=== PATIENT | female | born 1980 | race American Indian/Alaskan Native ===

== ENCOUNTER 2016-10-30 19:05 | Emergency (ER) | payer OTHER ==
[2016-10-30] MEDS ORDERED: VALIUM PO ONE (22:12)
[2016-10-30] MEDS ORDERED: NORCO 5/325 PO ONE (22:12)
[2016-10-30] MEDS ORDERED: BOOSTRIX IM ONE (22:19)
[2016-10-30] MEDS ORDERED: NACL 0.9% IR ONE (22:19)
--- NOTE | 2016-10-30 22:21 | Emergency Department Report ---
- General Chief Complaint: Laceration/Recheck/Suture Stated Complaint: GLASS IN FOOT Time Seen by Provider: 10/30/16 22:18 Source: patient, family Mode of arrival: Ambulatory Limitations: No Limitations - History of Present Illness Initial Comments: Patient here reports that she cut herself with a piece of glass accidentally to her left foot. Pain is 7 out of 7. Denies any foreign body sensation. She says she was given a glass of wine and she got out of bed and the glass on the floor and she stepped on the glass accidentally. Denies any numbness or tingling to toes. No [id number] medication taken prior to hospitalization. Tetanus vaccine is up-to-date -: This evening Extremity Location: Left: Foot (foot laceration due to injury) Place: home Patient Tetanus UTD: No Context: accidental Associated Symptoms: pain. denies: loss of feeling/numbness, suspect foreign body present, unable to move injured part, weakness followed by dizziness, nausea/vomiting, fever Treatments Prior to Arrival: bandage - Related Data Previous Rx's Medication Instructions Recorded Last Taken Type Cephalexin [Keflex] 500 mg PO Q8HR #21 cap 10/31/16 Unknown Rx Ibuprofen [Motrin] 600 mg PO Q8H PRN #015 tablet 10/31/16 Unknown Rx Allergies Allergy/AdvReac Type Severity Reaction Status Date / Time No Known Allergies Allergy Verified 10/30/16 19:25 ED Review of Systems ROS: Stated complaint: GLASS IN FOOT Other details as noted in HPI Comment: All other systems reviewed and negative Constitutional: denies: chills, fever Respiratory: no symptoms reported Cardiovascular: denies: chest pain, palpitations, edema, syncope Gastrointestinal: denies: abdominal pain, nausea, vomiting Musculoskeletal: arthralgia. denies: joint swelling, myalgia Skin: other (laceration left foot) Neurological: abnormal gait (due to left foot injury). denies: headache, weakness, numbness, paresthesias ED Past Medical Hx - Past Medical History Previous Medical History?: No - Surgical History Past Surgical History?: No - Family History Family history: no significant - Social History Smoking Status: Current Every Day Smoker Substance Use Type: Alcohol - Medications Home Medications: Home Medications Medication Instructions Recorded Confirmed Last Taken Type Cephalexin [Keflex] 500 mg PO Q8HR #21 cap 10/31/16 Unknown Rx Ibuprofen [Motrin] 600 mg PO Q8H PRN #015 tablet 10/31/16 Unknown Rx ED Physical Exam - General Limitations: No Limitations General appearance: alert, in no apparent distress - Head Head exam: Present: atraumatic, normocephalic, normal inspection - Neck Neck exam: Present: normal inspection, tenderness, full ROM. Absent: meningismus, lymphadenopathy - Respiratory Respiratory exam: Present: normal lung sounds bilaterally. Absent: respiratory distress, chest wall tenderness - Cardiovascular Cardiovascular Exam: Present: regular rate, normal rhythm, normal heart sounds - Extremities Exam Extremities exam: Present: normal inspection, full ROM, tenderness (tender to palpate around left foot laceration site), normal capillary refill, calf tenderness, other (no clubbing, cyanosis or edema. +2 pedal pulses. No neurovascular compromise bilaterally. Color refill is less than 3 seconds.). Absent: pedal edema, joint swelling - Back Exam Back exam: Present: normal inspection, full ROM. Absent: tenderness - Neurological Exam Neurological exam: Present: alert, oriented X3, abnormal gait (due to left foot injury.), reflexes normal - Psychiatric Psychiatric exam: Present: normal affect, normal mood - Skin Skin exam: Present: warm, dry, other (laceration) - Expanded Skin Exam Expanded Type of lesion: Present: laceration (left plantar aspect of the foot) Distribution of rash: LLE (foot) Description of rash: Present: size (1 cm), tenderness, swelling. Absent: erythematous, crusting, discharge, fluctuant, indurated ED Course Vital Signs 10/30/16 19:25 Temperature 98.3 F Pulse Rate 73 Respiratory 16 Rate Blood Pressure 123/86 O2 Sat by Pulse 100 Oximetry - Reevaluation(s) Reevaluation #1: 10/31/16 00:02 She given Valium 5 mg by mouth, [place] 5/325 one tablet by mouth in the emergency room for left foot pain. She was given Boostrix 0.5 mL to update tetanus vaccine. - Laceration /Wound Repair Left Plantar Foot Wound Location: lower extremity (left foot left foot) Wound Length (cm): 1 Wound's Depth, Shape: superficial, linear Wound Explored: no foreign body removed Irrigated w/ Saline (ccs): 250 Betadine Prep?: Yes Anesthesia: 1% Lidocaine Volume Anesthetic (ccs): 3 Wound Debrided: moderate Wound Repaired With: sutures (4-0 Ethilon) Suture Size/Type: 4:0 Number of Sutures: 6 Layer Closure?: No Number Deep Layer Sutures: 0 Sterile Dressing Applied?: Yes - Orthopedic Splinting/Casting Injury #1 Side: left Lower Extremity Injury Location: foot Other Orthopedic Equipment: crutches ED Medical Decision Making - Radiology Data Radiology results: report reviewed X-ray of left foot reveal no acute fracture or dislocation and no foreign body seen. - Medical Decision Making ED course: Pt status post laceration left lateral aspect of foot. Procedure note for laceration repair. No foreign body seenon x-ray. Patient was given [place] 5/325 one tablet, Valium 5 mg by mouth for anxiety and booster 0.5 mL to update tetanus. Patient stable condition and discharged home with her family to follow-up in emergency room in 7-10 days for removal of stitches. Patient given prescription for Keflex. Critical care attestation.: If time is entered above; I have spent that time in minutes in the direct care of this critically ill patient, excluding procedure time. ED Disposition Clinical Impression: Arthralgia of left foot Laceration of left foot excluding toes Qualifiers: Encounter type: initial encounter Qualified Code(s): S91.312A - Laceration without foreign body, left foot, initial encounter Disposition: TO HOME OR SELFCARE Is pt being admited?: No Does the pt Need Aspirin: No Condition: Stable Instructions: Arthralgia (ED), Suture Care (ED), Laceration (ED) Additional Instructions: Please follow up with primary care as recommended Increase fluid intake Take medication as prescribed . Referred to discharge instruction on splint care. Referred to discharge instruction in Rice therapy. Please return to emergency room in 7-10 days to have stitches removed. Please keep affected area clean and dry Prescriptions: Cephalexin [Keflex] 500 mg PO Q8HR #21 cap Ibuprofen [Motrin] 600 mg PO Q8H PRN #015 tablet PRN Reason: Pain Referrals: JEREMY PHAN MD [Primary Care Provider] - 11/01/16 please return to, ED [Other] - 7-10 days (To have stitches removed in 7-10 days. ) Forms: Work/School Release Form(ED)
[2016-10-30] MEDS ORDERED: XYLOCAINE 1% MPF 5 mL ONE (23:25)
--- NOTE | 2016-10-30 23:35 | XRay Report ---
FINAL REPORT EXAM: XR FOOT 3+V LT HISTORY: left foot laceration/broken glass/ FB TECHNIQUE: Three views of the left foot PRIORS: None. FINDINGS: The bones are normally aligned and mineralized. The joint spaces are well-preserved. There is no evidence of acute fracture. The soft tissues are unremarkable. There is no radiopaque foreign body. IMPRESSION: No evidence of acute fracture or foreign body.
[2016-10-31 00:41] VITALS: BP 140/75
[2016-10-31] MEDS ORDERED: XYLOCAINE 1%/ EPI 1:100,000 INFILTRATI ONE (06:39)
== END 2016-10-31 00:39 | disposition home or self-care (01) ==
LOC: ED 19:05
DX: S91.312A Laceration without foreign body, left foot, initial encounter (principal); W25.XXXA Contact with sharp glass, initial encounter; Y93.9 Activity, unspecified; Y92.9 Unspecified place or not applicable; Y99.9 Unspecified external cause status; F17.200 Nicotine dependence, unspecified, uncomplicated
CPT/HCPCS: 90471; 90715; 99283

== ENCOUNTER 2016-11-10 13:24 | Emergency (ER) | payer OTHER ==
[2016-11-10 13:32] VITALS: BP 129/79
--- NOTE | 2016-11-10 15:27 | Emergency Department Report ---
Entered by BECKY PONCE, acting as scribe for LISA MCDONALD PA. Suture/Staple Removal - HPI Chief Complaint: Laceration/Recheck/Suture Stated Complaint: STITCHES REMOVED Time Seen by Provider: 11/10/16 14:19 When Sutures or Omero Placed: 8-10 Days Ago Wound Location: plantar side of left foot ED Review of Systems ROS: Stated complaint: STITCHES REMOVED Other details as noted in HPI Comment: All other systems reviewed and negative Constitutional: denies: chills, fever Eyes: denies: eye pain, eye discharge, vision change ENT: denies: ear pain, throat pain Respiratory: denies: cough, orthopnea, shortness of breath, SOB with exertion, SOB at rest, stridor, wheezing Cardiovascular: denies: chest pain, palpitations, dyspnea on exertion, orthopnea , edema, syncope Endocrine: no symptoms reported Gastrointestinal: denies: abdominal pain, nausea, vomiting, diarrhea Musculoskeletal: denies: back pain, joint swelling, arthralgia, myalgia Skin: other (healing laceration to plantar side of left foot). denies: rash, lesions Neurological: denies: headache, weakness, numbness, paresthesias Hematological/Lymphatic: denies: easy bleeding, easy bruising ED Past Medical Hx - Past Medical History Previous Medical History?: No - Surgical History Past Surgical History?: No - Social History Smoking Status: Current Every Day Smoker Substance Use Type: Alcohol - Medications Home Medications: Home Medications Medication Instructions Recorded Confirmed Last Taken Type Cephalexin [Keflex] 500 mg PO Q8HR #21 cap 10/31/16 Unknown Rx Ibuprofen [Motrin 600 MG tab] 600 mg PO Q8H PRN #30 tablet 11/10/16 Unknown Rx Suture Removal Exam - Exam General: Vital signs noted. GENERAL: Patient is alert and oriented x 3. No apparent distress, normal gait, atraumatic. Wound: No Pathologic Erythema, No Tenderness, No Drainage, No Pus, No Wound Dehiscence Other Systems: HEAD: Head is normocephalic and atraumatic. LUNGS: Symmetrical with respiration. No wheezing, rales or crackles, CTAB. HEART: Regular rate and rhythm with normal S1/S2 present. No murmurs, rubs, or gallops. EXTREMITIES/MUSCULOSKELETAL: ROM intact, 2+ pulses in LE, no pitting edema SKIN: Warm and dry. No lesions, ulceration or induration present. Well healing laceration to plantar side of left foot with no erythema, drainage, or sign of infection noted. NEUROLOGIC: No focal deficit. ED Course Vital Signs 11/10/16 13:30 Temperature 98.5 F Pulse Rate 81 Respiratory 16 Rate Blood Pressure 129/79 O2 Sat by Pulse 100 Oximetry ED Recheck MDM - Medical Decision Making 36 year-old female presents with a laceration recheck for 10 days ED course: Patient had sutures removed from plantar side of left foot. Discussed with patient to continue to taking prescribed antibiotics and applying neosporin. Discussed with patient to keep healing laceration covered with a band aid and don't apply a lot of pressure. Discuss with patient to keep left foot dry other than dipping foot in peroxide. Instructed patient to wrapped foot in plastic before taking a shower. Discuss patient to rest and stay off left foot for the next 3 days. Discussed the patient to follow instructions as given and follow-up with primary care physician. Discuss her symptoms return or worsen to return to the ED Vital signs are normal patient is in no acute distress Critical care attestation.: If time is entered above; I have spent that time in minutes in the direct care of this critically ill patient, excluding procedure time. ED Disposition Clinical Impression: Encounter for removal of sutures Disposition: DC-01 TO HOME OR SELFCARE Is pt being admited?: No Does the pt Need Aspirin: No Condition: Stable Instructions: Acute Wound Care (ED) Prescriptions: Ibuprofen [Motrin 600 MG tab] 600 mg PO Q8H PRN #30 tablet PRN Reason: Pain Referrals: PRIMARY CARE,MD [Primary Care Provider] - 3-5 Days [facility] [Outside] - 3-5 Days [facility] [Outside] - 3-5 Days [facility] [Outside] - 3-5 Days Forms: Work/School Release Form(ED) Time of Disposition: 14:54 This documentation as recorded by the ROSARIO muir JASMINE,accurately reflects the service I personally performed and the decisions made by TAMARA paz OYINLOLA A PA.
== END 2016-11-10 15:10 | disposition home or self-care (01) ==
LOC: ED 13:24
DX: Z48.02 Encounter for removal of sutures (principal); F17.200 Nicotine dependence, unspecified, uncomplicated; Z53.21 Procedure and treatment not carried out due to patient leaving prior to being seen by health care provider

== ENCOUNTER 2017-10-11 15:44 | Emergency (ER) | payer OTHER ==
[2017-10-11 16:07] VITALS: BP 123/83
--- NOTE | 2017-10-11 17:15 | Emergency Department Report ---
ED Neck Pain/Injury HPI - General Chief Complaint: Neck Pain/Injury Stated Complaint: MUSCLE SPASMS, SHOULDER,NECK,LEG Time Seen by Provider: 10/11/17 16:51 Mode of arrival: Ambulatory Limitations: No Limitations - History of Present Illness Initial Comments: Patient is complaining of several days of left neck pain and shoulder pain with radiation into the arm. Patient states that she seen a chiropractor and also has Flexeril and ibuprofen which is not helping. The patient denies any injury or trauma. Patient states is been no fevers chills nausea vomiting. Patient states worse when she turns her head in certain directions. Severity scale (0 -10): 6 Quality: sharp Consistency: intermittent - Related Data Previous Rx's Medication Instructions Recorded Last Taken Type Cephalexin [Keflex] 500 mg PO Q8HR #21 cap 10/31/16 Unknown Rx Ibuprofen [Motrin 600 MG tab] 600 mg PO Q8H PRN #30 tablet 11/10/16 Unknown Rx HYDROcodone/APAP 5-325 [[place] 1 each PO Q6HR PRN #10 tablet 10/11/17 Unknown Rx 5/325] Prednisone [predniSONE 10 mg 10 mg PO .TAPER #1 tab.ds.pk 10/11/17 Unknown Rx (6-Day Pack, 21 Tabs)] methOCARBAMOL [Robaxin TAB] 500 mg PO Q6H #15 tablet 10/11/17 Unknown Rx Allergies Allergy/AdvReac Type Severity Reaction Status Date / Time No Known Allergies Allergy Verified 10/30/16 19:25 ED Review of Systems ROS: Stated complaint: MUSCLE SPASMS, SHOULDER,NECK,LEG Other details as noted in HPI Comment: All other systems reviewed and negative ED Past Medical Hx - Past Medical History Previous Medical History?: No - Surgical History Past Surgical History?: No - Social History Smoking Status: Current Every Day Smoker Substance Use Type: Alcohol, Marijuana - Medications Home Medications: Home Medications Medication Instructions Recorded Confirmed Last Taken Type Cephalexin [Keflex] 500 mg PO Q8HR #21 cap 10/31/16 Unknown Rx Ibuprofen [Motrin 600 MG tab] 600 mg PO Q8H PRN #30 tablet 11/10/16 Unknown Rx HYDROcodone/APAP 5-325 [[place] 1 each PO Q6HR PRN #10 tablet 10/11/17 Unknown Rx 5/325] Prednisone [predniSONE 10 mg 10 mg PO .TAPER #1 tab.ds.pk 10/11/17 Unknown Rx (6-Day Pack, 21 Tabs)] methOCARBAMOL [Robaxin TAB] 500 mg PO Q6H #15 tablet 10/11/17 Unknown Rx ED Physical Exam - General Limitations: No Limitations General appearance: alert, in no apparent distress - Head Head exam: Present: atraumatic, normocephalic - Eye Eye exam: Present: normal appearance - ENT ENT exam: Present: mucous membranes moist - Neck Neck exam: Present: normal inspection - Respiratory Respiratory exam: Present: normal lung sounds bilaterally. Absent: respiratory distress, wheezes, rales - Cardiovascular Cardiovascular Exam: Present: regular rate, normal rhythm. Absent: systolic murmur, diastolic murmur, rubs, gallop - GI/Abdominal GI/Abdominal exam: Present: soft, normal bowel sounds. Absent: distended, tenderness, guarding, rebound - Extremities Exam Extremities exam: Present: normal inspection - Back Exam Back exam: Present: normal inspection - Neurological Exam Neurological exam: Present: alert, oriented X3 - Psychiatric Psychiatric exam: Present: normal affect, normal mood - Skin Skin exam: Present: warm, dry, intact, normal color. Absent: rash ED Course Vital Signs 10/11/17 15:58 Pulse Rate 85 Blood Pressure 123/83 O2 Sat by Pulse 98 Oximetry Critical care attestation.: If time is entered above; I have spent that time in minutes in the direct care of this critically ill patient, excluding procedure time. ED Disposition Clinical Impression: Cervical radiculopathy Disposition: DC- TO HOME OR SELFCARE Is pt being admited?: No Does the pt Need Aspirin: No Condition: Stable Instructions: Cervical Radiculopathy (ED) Prescriptions: HYDROcodone/APAP 5-325 [[place] 5/325] 1 each PO Q6HR PRN #10 tablet PRN Reason: Pain methOCARBAMOL [Robaxin TAB] 500 mg PO Q6H #15 tablet Prednisone [predniSONE 10 mg (6-Day Pack, 21 Tabs)] 10 mg PO .TAPER #1 tab.ds.pk Referrals: PRIMARY CARE, [Primary Care Provider] - 3-5 Days
== END 2017-10-11 17:34 | disposition home or self-care (01) ==
LOC: ED 15:44
DX: M54.12 Radiculopathy, cervical region (principal); F17.200 Nicotine dependence, unspecified, uncomplicated; F12.90 Cannabis use, unspecified, uncomplicated
CPT/HCPCS: 99282

== ENCOUNTER 2020-04-18 17:39 | Emergency (ER) | payer MEDICAID, OTHER ==
[2020-04-18 18:12] VITALS: BP 124/77
--- NOTE | 2020-04-18 20:36 | XRay Report ---
Right wrist-4 views INDICATION: Fall today with generalized right wrist pain. COMPARISON: None. IMPRESSION: Mild soft tissue swelling along the dorsum of the distal forearm with no acute fracture or malalignment. No significant DJD. Signer Name: Javi Cannon MD Signed: 04/18/2020 8:31 PM Workstation Name: [id number]
--- NOTE | 2020-04-18 22:21 | Emergency Department Report ---
Upper Extremity - HPI Chief Complaint: Extremity Injury, Upper Stated Complaint: RT WRIST PAIN Time Seen by Provider: 04/18/20 19:13 Upper Extremity: Right Forearm (dorsal pain s/p GLF 5 days ago ) Occurred When: 5 Days Mechanism: Fall Severity: moderate Symptoms: Yes Pain with Movement, Yes Swelling, No Deformity, No Limited Range of Movement, No Numbness, No Weakness, No Bruising/Ecchymosis, No Laceration or Abrasion Other History: pt is a 39 y/o aaf who presents for right forearm pain s/p glf 5 days ago, she states she tripped while working outside, landing on her forearm. there was no loc no laceration. describeds pain as 4/10 soreness, pain improved with tiger balm, pain is exacerbated by lifting , performing work duties, typing etc. there numbness or tingling no paralysis ED Review of Systems ROS: Stated complaint: RT WRIST PAIN Other details as noted in HPI Constitutional: denies: chills, fever Eyes: denies: eye pain, eye discharge, vision change ENT: denies: ear pain, throat pain Respiratory: denies: cough, shortness of breath, wheezing Cardiovascular: denies: chest pain, palpitations Endocrine: no symptoms reported Gastrointestinal: as per HPI Genitourinary: denies: urgency, dysuria, discharge Musculoskeletal: other (forearm pain swelling ). denies: back pain, joint swelling, arthralgia Skin: denies: rash, lesions Neurological: denies: headache, weakness, paresthesias Psychiatric: denies: anxiety, depression Hematological/Lymphatic: denies: easy bleeding, easy bruising ED Past Medical Hx - Past Medical History Previous Medical History?: No - Surgical History Past Surgical History?: No - Social History Smoking Status: Current Every Day Smoker Substance Use Type: Alcohol, Marijuana - Medications Home Medications: Home Medications Medication Instructions Recorded Confirmed Last Taken Type cephALEXin [Keflex] 500 mg PO Q8HR #21 cap 10/31/16 Unknown Rx Ibuprofen [Motrin 600 MG tab] 600 mg PO Q8H PRN #30 tablet 11/10/16 Unknown Rx HYDROcodone/APAP 5-325 [[place] 1 each PO Q6HR PRN #10 tablet 10/11/17 Unknown Rx 5/325] Prednisone [predniSONE 10 mg 10 mg PO .TAPER #1 tab.ds.pk 10/11/17 Unknown Rx (6-Day Pack, 21 Tabs)] methOCARBAMOL [Robaxin TAB] 500 mg PO Q6H #15 tablet 10/11/17 Unknown Rx Naproxen 500 mg PO BID PRN #30 tablet 04/18/20 Unknown Rx Upper Extremity Exam - Exam General: Vital signs noted. No distress. Alert and acting appropriately. pt is a/o x 3, perrla ,eomi, normal cephalic, neck no pain no swelling no deformity, lungs clear bilat , card: s1s2 no rub, gallop,or mumur, abs soft nontender, normal bowel sounds, rom in tact no deformity, distal pulses intact air transport professionals equal, no abrasion, laceration or deformity, Head and Torso: No HEENT Abnormality, No Neck Tenderness, No Chest/Lungs Abnormality, No Abdominal Tenderness, No Back Tenderness Shoulder Exam: Yes Normal Range of Motion in Shoulder, No Shoulder Tenderness, No Clavicle Tenderness, No Shoulder Deformity, No AC Joint Tenderness Arm Exam: No Arm/Humerus Tenderness, No Arm Deformity Elbow: No Elbow Tenderness, No Normal Range of Motion in Elbow, No Elbow Deformity Forearm: Yes Forearm Tenderness, No Forearm Deformity, No Pain with Pronation, No Pain with Supination Hand: Yes Normal ROM in Digit(s), No Hand Tenderness, No Hand Deformity, No Digit Tenderness, No Digit(s) Deformity, No Tendon Dysfunction CMS Exam: Yes Normal Distal Pulses, Yes Normal Capillary Refill, Yes Normal Distal Sensation, No Broken Skin ED Course Vital Signs 04/18/20 18:12 Temperature 97.9 F Pulse Rate 63 Respiratory 16 Rate Blood Pressure 124/77 O2 Sat by Pulse 99 Oximetry ED Medical Decision Making - Radiology Data Radiology results: report reviewed, image reviewed Ordering Physician: ELEUTERIO EDUARDO Date of Service: 04/18/20 Procedure(s): XR wrist 3+V RT Accession Number(s): [id number] cc: ELEUTERIO EDUARDO Fluoro Time In Minutes: Right wrist-4 views INDICATION: Fall today with generalized right wrist pain. COMPARISON: None. MPRESSION: Mild soft tissue swelling along the dorsum of the distal forearm with no acute fracture or malalignment. No significant DJD. Signer Name: Javi Cannon MD Signed: 04/18/2020 8:31 PM [facility]station [id number] - Medical Decision Making xray no fracture, mild swelling, this is Dx: forarm strain, contusion, plan nsaids moist heat therapy follow up with pcp in 2-3 days , pt verbalized agreement and understanding of discharge plan. Critical care attestation.: If time is entered above; I have spent that time in minutes in the direct care of this critically ill patient, excluding procedure time. ED Disposition Clinical Impression: Strain of forearm, right Qualifiers: Encounter type: initial encounter Qualified Code(s): S56.911A - Strain of unspecified muscles, fascia and tendons at forearm level, right arm, initial encounter Disposition: DC- TO HOME OR SELFCARE Is pt being admited?: No Does the pt Need Aspirin: No Condition: Stable Instructions: Muscle Strain, [id number] Additional Instructions: use moist heat as discussed and agreed Prescriptions: Naproxen 500 mg PO BID PRN #30 tablet PRN Reason: pain Referrals: BARTOLO PERALTA MD [Staff Physician] - 3-5 Days Forms: Work/School Release Form(ED) Time of Disposition: 22:30
== END 2020-04-18 22:39 | disposition home or self-care (01) ==
LOC: ED 17:39
DX: S56.911A Strain of unspecified muscles, fascia and tendons at forearm level, right arm, initial encounter (principal); F17.200 Nicotine dependence, unspecified, uncomplicated; F12.90 Cannabis use, unspecified, uncomplicated; Z79.899 Other long term (current) drug therapy; W01.0XXA Fall on same level from slipping, tripping and stumbling without subsequent striking against object, initial encounter; Y93.89 Activity, other specified; Y92.89 Other specified places as the place of occurrence of the external cause; Y99.8 Other external cause status